=== PATIENT | male | born 1980 | race Caucasian/White ===

== ENCOUNTER 2021-03-20 13:06 | Emergency (ER) | payer OTHER ==
--- NOTE | 2021-03-20 13:38 | EDM.PDOC ---
ED HPI GENERAL MEDICAL PROBLEM - General Chief Complaint: General Stated Complaint: HORSE FELL ON TOP OF HIM Time Seen by Provider: 03/20/21 13:32 Source of Information: Reports: Patient, Family History Limitations: Reports: No Limitations - History of Present Illness INITIAL COMMENTS - FREE TEXT/NARRATIVE: Patient was moving cattle today on his horse and was going through a ravine and his horse lost footing and caused him to fall he had the Tori and hit him in the nose, he has complaints of chest pain and right-sided rib pain. Denies any loss of consciousness but did have diaphoresis and nausea. No abdominal pain currently he denies any back pain or hip pain no numbness tingling or weakness to upper or lower extremities she is got a abrasion of the left hand and the knuckles but moves his hands without difficulty, denies any neck pain in particular, was feeling well before the accident his last meal was about 7:00 this morning denies any major medical problems not on any anticoagulants. No vomiting or diarrhea Onset: Today Duration: Getting Worse Location: Reports: Head, Chest Quality: Reports: Ache, Sharp, Stabbing Severity: Severe Worsens with: Reports: Movement Associated Symptoms: Reports: Chest Pain, Diaphoresis, Shortness of Breath. Denies: Cough, cough w sputum, Fever/Chills, Loss of Appetite, Nausea/Vomiting Headache Pain Score (Numeric/FACES): 3 Right Posterior Back Pain Score (Numeric/FACES): 8 Chest Pain Score (Numeric/FACES): 8 Left Hand Pain Score (Numeric/FACES): 2 - Related Data Allergies Allergy/AdvReac Type Severity Reaction Status Date / Time No Known Allergies Allergy Verified 03/20/21 13:38 Home Meds: Home Meds Doxycycline [Vibra-Tabs] 100 mg PO Q12HR #14 tab 03/20/21 [Rx] Hydrocodone/Acetaminophen [HYDROcodone-Acetaminophen 10-325 MG] 1 each PO Q6HR PRN #14 tab 03/20/21 [Rx] Naproxen [Naprosyn] 500 mg PO Q12HR #30 tab 03/20/21 [Rx] Orphenadrine [Norflex] 100 mg PO BID PRN #30 tab 03/20/21 [Rx] ED ROS GENERAL - Review of Systems Review Of Systems: See Below Constitutional: Denies: Fever, Chills HEENT: Denies: Vision Change Respiratory: Reports: Shortness of Breath, Pleuritic Chest Pain. Denies: Cough, Hemoptysis Cardiovascular: Reports: Chest Pain. Denies: Lightheadedness, PND, Syncope GI/Abdominal: Denies: Abdominal Pain, Diarrhea, Decreased Appetite, Nausea, Vomiting : Denies: Dysuria Musculoskeletal: Reports: Hand Pain. Denies: Neck Pain, Shoulder Pain, Back Pain, Leg Pain, Joint Pain Skin: Reports: Wound, Other (Abrasion on the nose will need to look closer for any laceration but is septum is midline no septal hematoma) Neurological: Reports: No Symptoms. Denies: Headache, Trouble Speaking Psychiatric: Reports: No Symptoms Hematologic/Lymphatic: Reports: No Symptoms ED EXAM, GENERAL - Physical Exam Exam: See Below Exam Limited By: No Limitations General Appearance: Alert, WD/WN, Moderate Distress Eye Exam: Bilateral Eye: PERRL Ears: Normal TMs Nose: Nasal Tenderness. No: Nasal Deformity Throat/Mouth: Normal Inspection, Normal Teeth, Normal Oropharynx, Other (No malocclusion or dental pain no maxillofacial pain except for the nose.) Head: Atraumatic Neck: Normal Inspection, Supple, Non-Tender, Full Range of Motion Respiratory/Chest: No Respiratory Distress, Normal Breath Sounds, Decreased Breath Sounds, Splinting Cardiovascular: Normal Peripheral Pulses, Regular Rate, Rhythm, No Edema GI/Abdominal: Normal Bowel Sounds, Soft, Non-Tender, No Organomegaly, No Distention, No Mass, Pelvis Stable Back Exam: No: CVA Tenderness (L), CVA Tenderness (R), Paraspinal Tenderness Extremities: Normal Inspection, Normal Range of Motion, Non-Tender, No Pedal Edema, Normal Capillary Refill. No: Arm Pain, Leg Pain Neurological: Alert, Oriented, CN II-XII Intact, Normal Cognition Psychiatric: Normal Affect, Normal Mood Skin Exam: Warm Course - Vital Signs Text/Narrative:: Fall from horse sustaining multiple areas of injury including the face, chest, left hand, right upper quadrant. Chest trauma series, trauma exams,, alert called based on mechanism. Patient will be given IV fluid resuscitation pain medications laboratory evaluation. Last Recorded V/S: Last Vital Signs Temp 97.9 F 03/20/21 13:26 Pulse 81 03/20/21 13:26 Resp 20 03/20/21 13:26 BP 146/108 H 03/20/21 13:26 Pulse Ox 100 03/20/21 13:26 - Orders/Labs/Meds Orders: Active Orders 24 hr Category Date Time Status Peripheral IV Care [RC] . DIRECTED Care 03/20/21 13:40 Active Cervical Spine wo Cont [CT] Stat Exams 03/20/21 13:40 Taken Chest Abdomen Pelvis w Cont [CT] Stat Exams 03/20/21 13:38 Taken Head wo Cont [CT] Stat Exams 03/20/21 13:38 Taken Max Facial Sinus wo Cont [CT] Stat Exams 03/20/21 13:42 Taken TYPE AND SCREEN [BBK] Stat Lab 03/20/21 13:35 Received Sodium Chloride 0.9% [Saline Flush] Med 03/20/21 13:40 Active 10 ml FLUSH ASDIRECTED PRN Peripheral IV Insertion Adult [OM.PC] Stat Oth 03/20/21 13:38 Ordered Medication Orders Sodium Chloride (Sodium Chloride 0.9% 10 Ml Syringe) 10 ml FLUSH ASDIRECTED PRN PRN Reason: Keep Vein Open Last Admin: 03/20/21 14:44 Dose: 10 ml Documented by: LÁZARO Labs: Laboratory Tests 03/20/21 03/20/21 03/20/21 Range/Units 13:26 13:35 13:35 WBC 11.92 H (4.23-9.07) K/mm3 RBC 5.25 (4.63-6.08) M/mm3 Hgb 17.1 (13.7-17.5) gm/dl Hct 49.6 (40.1-51.0) % MCV 94.5 H (79.0-92.2) fl MCH 32.6 H (25.7-32.2) pg MCHC 34.5 (32.2-35.5) g/dl RDW Std Deviation 44.6 H (35.1-43.9) fL Plt Count 202 (163-337) K/mm3 MPV 9.9 (9.4-12.3) fl Neut % (Auto) 80.7 H (34.0-67.9) % Lymph % (Auto) 9.4 L (21.8-53.1) % [place] % (Auto) 8.6 (5.3-12.2) % Eos % (Auto) 0.4 L (0.8-7.0) Baso % (Auto) 0.5 (0.1-1.2) % Neut # (Auto) 9.62 H (1.78-5.38) K/mm3 Lymph # (Auto) 1.12 L (1.32-3.57) K/mm3 [place] # (Auto) 1.02 H (0.30-0.82) K/mm3 Eos # (Auto) 0.05 (0.04-0.54) K/mm3 Baso # (Auto) 0.06 (0.01-0.08) K/mm3 PT 10.3 (9.7-12.0) SECONDS INR 0.93 Sodium (136-145) mEq/L Potassium (3.5-5.1) mEq/L Chloride (98-107) mEq/L Carbon Dioxide (21-32) mEq/L Anion Gap (5-15) BUN (7-18) mg/dL Creatinine (0.7-1.3) mg/dL Est Cr Clr Drug Dosing mL/min Estimated GFR (MDRD) (>60) mL/min BUN/Creatinine Ratio (14-18) Glucose (70-99) mg/dL POC Glucose 101 H (70-99) mg/dL Calcium (8.5-10.1) mg/dL Total Bilirubin (0.2-1.0) mg/dL AST (15-37) U/L ALT (16-63) U/L Alkaline Phosphatase (46-116) U/L Total Protein (6.4-8.2) g/dl Albumin (3.4-5.0) g/dl Globulin gm/dL Albumin/Globulin Ratio (1-2) Lipase (73-393) U/L Urine Color (Yellow) Urine Appearance (Clear) Urine pH (5.0-8.0) Ur Specific [place] (1.005-1.030) Urine Protein (Negative) Urine Glucose (UA) (Negative) Urine Ketones (Negative) Urine Occult Blood (Negative) Urine Nitrite (Negative) Urine Bilirubin (Negative) Urine Urobilinogen (0.2-1.0) Ur Leukocyte Esterase (Negative) Ethyl Alcohol (0.00) gm% 03/20/21 03/20/21 Range/Units 13:35 16:45 WBC (4.23-9.07) K/mm3 RBC (4.63-6.08) M/mm3 Hgb (13.7-17.5) gm/dl Hct (40.1-51.0) % MCV (79.0-92.2) fl MCH (25.7-32.2) pg MCHC (32.2-35.5) g/dl RDW Std Deviation (35.1-43.9) fL Plt Count (163-337) K/mm3 MPV (9.4-12.3) fl Neut % (Auto) (34.0-67.9) % Lymph % (Auto) (21.8-53.1) % [place] % (Auto) (5.3-12.2) % Eos % (Auto) (0.8-7.0) Baso % (Auto) (0.1-1.2) % Neut # (Auto) (1.78-5.38) K/mm3 Lymph # (Auto) (1.32-3.57) K/mm3 [place] # (Auto) (0.30-0.82) K/mm3 Eos # (Auto) (0.04-0.54) K/mm3 Baso # (Auto) (0.01-0.08) K/mm3 PT (9.7-12.0) SECONDS INR Sodium 138 (136-145) mEq/L Potassium 4.5 (3.5-5.1) mEq/L Chloride 103 (98-107) mEq/L Carbon Dioxide 23 (21-32) mEq/L Anion Gap 16.5 H (5-15) BUN 20 H (7-18) mg/dL Creatinine 1.0 (0.7-1.3) mg/dL Est Cr Clr Drug Dosing 106.68 mL/min Estimated GFR (MDRD) > 60 (>60) mL/min BUN/Creatinine Ratio 20.0 H (14-18) Glucose 90 (70-99) mg/dL POC Glucose (70-99) mg/dL Calcium 8.6 (8.5-10.1) mg/dL Total Bilirubin 0.6 (0.2-1.0) mg/dL AST 47 H (15-37) U/L ALT 97 H (16-63) U/L Alkaline Phosphatase 65 (46-116) U/L Total Protein 7.4 (6.4-8.2) g/dl Albumin 4.1 (3.4-5.0) g/dl Globulin 3.3 gm/dL Albumin/Globulin Ratio 1.2 (1-2) Lipase 168 (73-393) U/L Urine Color [place] H (Yellow) Urine Appearance Clear (Clear) Urine pH 6.0 (5.0-8.0) Ur Specific [place] 1.020 (1.005-1.030) Urine Protein Negative (Negative) Urine Glucose (UA) Negative (Negative) Urine Ketones 2+ H (Negative) Urine Occult Blood Negative (Negative) Urine Nitrite Negative (Negative) Urine Bilirubin Negative (Negative) Urine Urobilinogen 0.2 (0.2-1.0) Ur Leukocyte Esterase Negative (Negative) Ethyl Alcohol 0.00 (0.00) gm% Meds: Medications Generic Name Dose Route Start Last Admin Trade Name Freq PRN Reason Stop Dose Admin Sodium Chloride 10 ml 03/20/21 13:40 03/20/21 14:44 Sodium Chloride 0.9% 10 Ml Syringe FLUSH 10 ml ASDIRECTED PRN Administration Keep Vein Open Discontinued Medications Generic Name Dose Route Start Last Admin Trade Name Freq PRN Reason Stop Dose Admin Hydromorphone HCl 1 mg 03/20/21 15:15 03/20/21 15:41 Hydromorphone 1 Mg/Ml Syringe IVPUSH 03/20/21 15:16 1 mg ONETIME ONE Administration Sodium Chloride 1,000 mls @ 999 mls/hr 03/20/21 13:41 03/20/21 14:43 Normal Saline IV 03/20/21 14:41 999 mls/hr ONETIME ONE Administration Ketorolac Tromethamine 15 mg 03/20/21 15:53 03/20/21 16:48 Ketorolac 15 Mg/Ml Sdv IVPUSH 03/20/21 15:54 15 mg ONETIME ONE Administration Ondansetron HCl 4 mg 03/20/21 14:58 03/20/21 15:11 Ondansetron 4 Mg/2 Ml Sdv IVPUSH 03/20/21 14:59 4 mg ONETIME ONE Administration Orphenadrine Citrate 100 mg 03/20/21 15:53 03/20/21 16:48 Orphenadrine 100 Mg Tab.Er PO 03/20/21 15:54 100 mg NOW ONE Administration - Radiology Interpretation Free Text/Narrative:: Trauma CT scans showed a CT head noncontrast with no acute intracranial abnormality no signs of any bleeding or fracture maxillofacial shows mildly displaced multicomponent nasal bone fracture slightly deviated toward the left otherwise no acute fractures noted in the maxillofacial region cervical spine shows mild to moderate grade degenerative changes otherwise no fracture dislocation or subluxation of the spine CT chest with contrast shows no acute intrathoracic injury, in particular there is no lung contusion pleural spaces are normal no pneumothorax or hemothorax heart and great structures including the aorta are normal lymph nodes are normal no acute fractures of the ribs, CT abdomen pelvis with IV contrast shows no acute intra abdominal or intrapelvic injury associated with any blunt trauma - Re-Assessments/Exams Free Text/Narrative Re-Assessment/Exam: 03/20/21 15:29 Sodium 130 potassium 4.5 chloride 103 CO2 23 BUN 20 creatinine 1 creatinine clearance greater than 60 glucose 90 AST 47 ALT 97 alkaline phos normal alcohol level negative lipase is normal total protein and albumin are normal white blood cell count 11,900 hemoglobin is 17.1 hematocrit of 49.6 platelet count is 202 INR 0.93 blood glucose was 101 on arrival 03/20/21 15:52 CT trauma scan showed some fracture fragments of the nasal bone with some deviated fragments toward the left otherwise no other maxillofacial fractures, other trauma scans including his chest mediastinum and large intra-abdominal organs are within normal limits no free fluid. Patient has been given some Dilaudid, will give him a dose of Toradol and Norflex. We will continue IV fluid resuscitation. Will decide dispo based on his pain level, urinalysis is still pending. 03/20/21 17:41 Urine shows 2+ ketones else negative Patient seems to be doing okay he does have some skin changes bilateral hands has been dealing with this for quite some time and does have appointment with the block inspector he did have a course of Bactrim and prednisone did not seem to help. Of asked him to consider bag balm at least daily covering with cotton gloves at night, doxycycline 100 mg twice daily for 7-day course otherwise still follow-up with the block inspector otherwise in the meantime he does have nasal bone fracture no signs of septal hematoma consider follow-up with ENT once the swelling is gone, wound care instructions given and reviewed, [place] 1-2 every 6 hours as needed for severe pain #12, Naprosyn 500 mg twice a day for anti- inflammatory pain, Norflex 100 mg twice a day. Recommend recheck evaluation in the next week, return sooner if any increasing chest pain especially associated with shortness of breath, fevers, coughing, worsening aches or pains in other area especially associated with abdominal pain nausea vomiting or worsening. Departure - Departure Time of Disposition: 18:00 Disposition: Home, Self-Care 01 Clinical Impression: Fall from horse Qualifiers: Encounter type: initial encounter Qualified Code(s): V80.010A - Animal-rider injured by fall from or being thrown from horse in noncollision accident, initial encounter Nasal bone fracture Qualifiers: Encounter type: initial encounter Fracture type: closed Qualified Code(s): S02.2XXA - Fracture of nasal bones, initial encounter for closed fracture Blunt trauma to chest Qualifiers: Encounter type: initial encounter Qualified Code(s): S29.8XXA - Other specified injuries of thorax, initial encounter - Discharge Information Prescriptions: Hydrocodone/Acetaminophen [HYDROcodone-Acetaminophen 10-325 MG] 1 each PO Q6HR PRN #14 tab PRN Reason: Pain (Severe 7-10) Naproxen [Naprosyn] 500 mg PO Q12HR #30 tab Orphenadrine [Norflex] 100 mg PO BID PRN #30 tab PRN Reason: Muscle Spasm - Painful Doxycycline [Vibra-Tabs] 100 mg PO Q12HR #14 tab Referrals: Ashleigh Harper, [facility] [Primary Care Provider] - Forms: ED Department Discharge Additional Instructions: And follow-up with your primary care this coming week for recheck evaluation. We will have her recommend follow-up with ear nose and throat regarding your nasal bone fracture. I have written for hydrocodone 1 every 6 hours as needed for severe pain #14 written, Naprosyn 500 mg twice a day for anti-inflammatory pain, Norflex 1 twice a day for muscle relaxant. We will try doxycycline 100 mg twice a day for 7-day course to see if this helps your hands. Try to use the bag balm and cotton gloves at bedtime on a daily basis until you follow-up with dermatology. Try to take deep breaths and cough periodically avoid any pneumonia. Return to the emergency room with any increasing pain, difficulty breathing, lightheadedness, fevers, coughing, abdominal pain, vomiting, any worsening symptoms, any signs of infection on your abrasions on your nose or on your left hand. Sepsis Event Note (ED) - Focused Exam Vital Signs: Vital Signs Temp Pulse Resp BP Pulse Ox 03/20/21 13:26 97.9 F 81 20 146/108 H 100 - My Orders Last 24 Hours: My Active Orders 03/20/21 13:35 TYPE AND SCREEN [BBK] Stat 03/20/21 13:38 Chest Abdomen Pelvis w Cont [CT] Stat Head wo Cont [CT] Stat Peripheral IV Insertion Adult [OM.PC] Stat 03/20/21 13:40 Peripheral IV Care [RC] . DIRECTED Cervical Spine wo Cont [CT] Stat Sodium Chloride 0.9% [Saline Flush] 10 ml FLUSH ASDIRECTED PRN 03/20/21 13:42 Max Facial Sinus wo Cont [CT] Stat - Assessment/Plan Last 24 Hours: My Active Orders 03/20/21 13:35 TYPE AND SCREEN [BBK] Stat 03/20/21 13:38 Chest Abdomen Pelvis w Cont [CT] Stat Head wo Cont [CT] Stat Peripheral IV Insertion Adult [OM.PC] Stat 03/20/21 13:40 Peripheral IV Care [RC] . DIRECTED Cervical Spine wo Cont [CT] Stat Sodium Chloride 0.9% [Saline Flush] 10 ml FLUSH ASDIRECTED PRN 03/20/21 13:42 Max Facial Sinus wo Cont [CT] Stat
[2021-03-20] MEDS ORDERED: Sodium Chloride 0.9% 10 ML Syringe FLUSH PRN (13:40)
[2021-03-20] MEDS ORDERED: Sodium Chloride 0.9% 1,000 ML IV ONE (13:41)
[2021-03-20] MEDS ORDERED: Ondansetron 4 MG/2 ML SDV IVPUSH ONE (14:58)
[2021-03-20] MEDS ORDERED: HYDROmorphone 1 MG/ML Syringe IVPUSH ONE (15:15)
[2021-03-20] MEDS ORDERED: Ketorolac 15 MG/ML SDV IVPUSH ONE (15:53)
[2021-03-20] MEDS ORDERED: Orphenadrine 100 MG Tab.ER PO ONE (15:53)
[2021-03-20] MEDS ORDERED: Diphtheria,Pertussis(Acell),Tetanus Vaccine 0.5 ML Syringe IM ONE (18:07)
--- NOTE | 2021-03-21 09:11 | CT ---
Head CT Technique: Multiple axial sections through the brain were obtained. Intravenous contrast was not utilized. Reconstructed coronal and sagittal images were obtained. Comparison: No prior intracranial imaging is available. Findings: Ventricles along the basal cisterns and sulci over the convexities are within normal limits for the patient's age. No abnormal parenchymal densities are seen. No evidence of intracranial hemorrhage is seen. No midline shift or mass-effect is seen. Bone window settings were reviewed which show mild mucosal thickening within the inferior maxillary sinuses. No acute mastoid sinus findings are seen. No acute calvarial abnormality is appreciated. Impression: 1. Minimal mucosal thickening within the inferior maxillary sinuses. 2. No acute intracranial abnormality is appreciated. Diagnostic code #2 I agree with preliminary report from [facility], finalized on 03/20/21, 3:43 PM CDT, code 1
--- NOTE | 2021-03-21 09:13 | CT ---
CT cervical spine Technique: Multiple axial sections were obtained from above C1 inferiorly to the bottom of T2. Reconstructed coronal and sagittal images were obtained. Comparison: No prior cervical spine imaging is available. Findings: Mild posterolateral spurring is noted off of both sides at C5-6 and C6-7 as well as C7-T1. Scattered mild disc space narrowing is seen. No bony central or bony neural foraminal stenosis is seen. No acute fracture or abnormal subluxation is seen. Slight scoliosis is noted which is most likely positional. Impression: 1. Mild degenerative change as noted above. 2. No acute fracture or abnormal subluxation is seen. Diagnostic code #2 I agree with preliminary report from [facility], finalized on 03/20/21, 3:44 PM CDT, code 1
--- NOTE | 2021-03-21 09:23 | CT ---
CT chest Technique: Multiple axial sections were obtained from above the lung apices inferiorly through the lung bases. Intravenous contrast was utilized. Reconstructed coronal and sagittal images were obtained. Comparison: No prior chest imaging is available. Findings: Thoracic aorta shows no aneurysm. No mediastinal adenopathy is seen. No mediastinal hematoma is noted. No axillary adenopathy is seen. No pericardial thickening is seen. No evidence of cardiomegaly. Lung window settings were reviewed which show slight atelectasis within the right lung base. No acute parenchymal change is otherwise seen. Bone window settings were reviewed which show no acute osseous abnormality. Impression: 1. Minimal right basilar atelectasis. 2. Nothing acute is otherwise seen on CT study of the chest. Diagnostic code #2 CT abdomen and pelvis Technique: Multiple axial sections were obtained from above the dome of the diaphragm inferiorly through the pubic symphysis. Intravenous contrast was utilized. No oral contrast has been given. Reconstructed coronal and sagittal images were obtained. Delayed images were also obtained through the abdomen and pelvis. Comparison: No prior abdominal imaging is available. Findings: Liver contains no focal parenchymal abnormality. Slight artifact is seen because of the patient's arms along his side. Spleen size is normal. Gallbladder contains no calcified gallstones. Adrenal glands show no nodule. Pancreas shows no abnormality. Kidneys show symmetric contrast enhancement. Delayed images shows contrast within the collecting systems of both kidneys as well as contrast within nondilated ureters and within the bladder. Abdominal aorta shows no aneurysm. No retroperitoneal adenopathy is seen. No mesenteric abnormalities are seen. Appendix is seen and is normal in size. No pelvic mass or adenopathy is seen. No free fluid or inflammatory change is seen. Bone window settings were reviewed which show no acute osseous abnormality. Impression: 1. Nothing acute is appreciated on CT study of the abdomen and pelvis. Diagnostic code #1
--- NOTE | 2021-03-21 09:24 | CT ---
CT maxillofacial Technique: Multiple axial sections were obtained through the maxillofacial structures. Reconstructed coronal and sagittal images were obtained. Comparison: No previous facial study is available. Findings: Soft tissue swelling is noted over the nasal structures. Nasal bone fracture is noted showing very minimal displacement. Right and left globes are symmetric. No additional facial fracture is seen. Soft tissue swelling is noted within both inferior maxillary sinuses. No air-fluid levels are seen. Impression: 1. Minimal sinus findings believed to be chronic. 2. Minimally displaced nasal bone fracture with soft tissue swelling. 3. No other acute abnormality is appreciated. Diagnostic code #3 I agree with preliminary report from [facility], finalized on 03/20/21, 3:52 PM CDT, code 1
== END 2021-03-20 18:52 | disposition home or self-care (01) ==
LOC: JD.ED 13:06 → SUPCPDRO 13:06 → JD.ED 18:52
DX: S02.2XXA Fracture of nasal bones, initial encounter for closed fracture (principal); S29.9XXA Unspecified injury of thorax, initial encounter; Z23 Encounter for immunization; V80.010A Animal-rider injured by fall from or being thrown from horse in noncollision accident, initial encounter
CPT/HCPCS: 36415; 70450; 70486; 71260; 72125; 74177; 80053; 80307; 81003; 82947; 83690; 85025; 85610; 86850; 86900; 86901; 90471; 90715; 96374; 96375; 99284; A9270; J1170; J1885; J2405; J7030